=== PATIENT | female | born 1990 | race Caucasian/White ===

== ENCOUNTER 2019-06-15 13:54 | Emergency (ER) | payer OTHER ==
[~2019-06-15] VITALS: Ht 160 cm; Wt 58.7 kg
[2019-06-15] MEDS ORDERED: HYDROmorphone 1 MG/ML, 1ML INJ ONE ×2 (14:24→14:53)
[2019-06-15] MEDS ORDERED: HYDROmorphone 1 MG/ML, 1ML INJ IV ONE ×2 (14:30→15:00)
[2019-06-15] MEDS ORDERED: PROPOFOL 10 MG/ML, 20ML IVPush ONE (15:00)
[2019-06-15] MEDS ORDERED: PROPOFOL 10 MG/ML, 20ML ONE (15:17)
--- NOTE | 2019-06-15 15:47 | NUR ---
post reduction imaging ok per . sling already in place. pt tolerating well. no acute s/s of distress.
[2019-06-15 16:30] VITALS: BP 113/85
== END 2019-06-15 16:37 | disposition home or self-care (01) ==
LOC: ED 16:30
DX: S43.085A Other dislocation of left shoulder joint, initial encounter (principal); S00.511A Abrasion of lip, initial encounter; S00.212A Abrasion of left eyelid and periocular area, initial encounter; S00.81XA Abrasion of other part of head, initial encounter; X58.XXXA Exposure to other specified factors, initial encounter; Y93.55 Activity, bike riding; Y92.828 Other wilderness area as the place of occurrence of the external cause; Y99.8 Other external cause status
CPT/HCPCS: 23650; 73020; 73030; 96374; 96376; 99152; 99285; J1170; J2704